=== PATIENT | male | born 1955 | race Caucasian/White ===

== ENCOUNTER 2017-08-16 22:22 | Emergency (ER) | payer SELFPAY ==
[~2017-08-16] VITALS: Ht 177.8 cm; Wt 70.0 kg
[2017-08-16] MEDS ORDERED: TRAM50 PO (23:26)
--- NOTE | 2017-08-16 23:26 | PD ---
HPI Chief Complaint: Pain: Acute or Chronic Time Seen by Provider: 22:47 Travel History International Travel<30 days: No Contact w/Intl Traveler<30days: No Traveled to known affect area: No History of Present Illness HPI Patient states that he suffers from chronic sciatica. Today while ambulating home from a bar he developed that pain again and is worsening exacerbation. Patient describes pain as a left lower extremity shooting down his extremity, 7 out of 10, worsened with activity such as walking. Sometimes improved with rest. Patient denies any associated fecal or urinary incontinence, denies any numbness to his groin or saddle area, denies any blanching of his lower extremity or pale or bluish appearance to his lower extremity. No known drug allergy Past medical history significant for sciatica, retinal detachment with laser surgery. FORMERLY [facility] Past Medical History Diminished Hearing: No Glaucoma: Yes Medical other: Yes (SCIATICA) Immunizations Current: Yes Past Surgical History Eye Surgery: Yes (RETINA DETACHMENT, LASER SURGERY) Social History Alcohol Use: Yes Tobacco Use: Yes (1/2 PPD) Substance Use: No Allergies-Medications (Allergen,Severity, Reaction): Coded Allergies: No Known Allergies (Unverified , 08/16/17) Review of Systems General / Constitutional: No: Fever Eyes: No: Visual changes HENT: No: Headaches Cardiovascular: No: Chest Pain or Discomfort Respiratory: No: Shortness of Breath Gastrointestinal: No: Abdominal Pain Genitourinary: No: Dysuria Musculoskeletal: Positive: Pain (Left lower extremity) Skin: No Rash Neurologic: No: Weakness Psychiatric: No: Depression Endocrine: No: Polydipsia Hematologic/Lymphatic: No: Easy Bruising Physical Exam Narrative GENERAL: SKIN: Warm and dry. HEAD: Atraumatic. Normocephalic. EYES: Pupils equal and round. No scleral icterus. No injection or drainage. ENT: No nasal bleeding or discharge. Mucous membranes pink and moist. NECK: Trachea midline. No JVD. CARDIOVASCULAR: Regular rate and rhythm. RESPIRATORY: No accessory muscle use. Clear to auscultation. Breath sounds equal bilaterally. GASTROINTESTINAL: Abdomen soft, non-tender, nondistended. Hepatic and splenic margins not palpable. MUSCULOSKELETAL: Extremities without clubbing, cyanosis, or edema. No obvious deformities. Positive contralateral straight leg raise test, positive unilateral straight leg raise test. No saddle anesthesia. Normal cremasterics reflex NEUROLOGICAL: Awake and alert. No obvious cranial nerve deficits. Motor grossly within normal limits. Five out of 5 muscle strength in the arms and legs. Normal speech. PSYCHIATRIC: Appropriate mood and affect; insight and judgment normal. MDM Medical Decision Making Medical Screen Exam Complete: Yes Emergency Medical Condition: Yes Medical Record Reviewed: Yes Differential Diagnosis Conus versus sciatica Narrative Course Clinically no evidence of any conus medullaris however there is present evidence for sciatica. Diagnosis Primary Impression: left sciatica Patient Instructions: General Instructions, Sciatica (ED) Scripts Tramadol (Ultram) 50 Mg Tab 50 MG PO Q8H Y for PAIN, #12 TAB 0 Refills Prov: Asa Jacobson MD 08/16/17 Disposition: 01 DISCHARGE HOME Condition: Stable Asa Jacobson MD Aug 16, 2017 23:26
== END 2017-08-17 04:12 | disposition home or self-care (01) ==
LOC: NEPD 22:22
DX: M54.32 Sciatica, left side (principal); H40.9 Unspecified glaucoma; F17.200 Nicotine dependence, unspecified, uncomplicated
CPT/HCPCS: 99283